=== PATIENT | female | born 1990 | race Two or more races ===

== ENCOUNTER 2024-02-26 16:51 | Emergency (ER) | payer SELFPAY ==
[2024-02-26] MEDS: Triamcinolone Acetonide 40 MG/ML 1 ML SDV INJECT STA (18:06)
[2024-02-26] MEDS: Cetirizine 10 MG Tab PO STA (18:07)
[2024-02-26 18:42] VITALS: PULSE 92
[2024-02-26 19:13] VITALS: BP 108/70
== END 2024-02-26 19:13 | disposition home or self-care (01) ==
LOC: MW.ED 16:51
DX: L29.9 Pruritus, unspecified (principal); Z75.8 Other problems related to medical facilities and other health care; Z86.16 Personal history of COVID-19
CPT/HCPCS: 96372; 99282; A9270; J3301; 99283